=== PATIENT | male | born 1940 | race Caucasian/White ===

== ENCOUNTER → 2016-08-25 | Outpatient (CLI) | payer MEDICARE, BC ==
[~2016-08-25] MED LIST: ACETAMINOPHEN PO; ADVIL200 M3 PO; ALLEGRA PO; AMLODIPINE BESYL5 MG PO; ASPIRIN PO; ASPIRIN81 M2 PO; CENTRUM SILVER PO; CLARITIN10 M2 PO; CLARITIN10 MG PO; DAKIN'S MODIF1000 ML EXT; DICLOFENAC PO; FOLIC ACID PO; GLUCOPHAGE500 MG; GLYNASE PO; LEVAQUIN PO; LEVAQUIN750 MG PO; LISINOPRIL PO; LOPRESSOR PO; LORTAB 7.5-5001 TAB PO; MAXIPIME2 GM IV; METFORMIN HCL500 M1 PO; METFORMIN PO; METHOTREXATE2.5 MG PO; NORVASC PO; NORVASC2.5 MG PO; PANTOPRAZOLE SO40 MG PO; PERCOCET PO; PRILOSEC PO; SANTYL15 G1 TP; SIMVASTATIN20 MG PO; SORIATANE25 M1 PO; SORIATANE25 MG PO; VANCOMYCIN HCL1 GM IV; VITAMIN B122500 MCG; ZESTRIL2.5 M1 PO; ZOCOR PO
--- NOTE | ~2016-08-25 | CT15 ---
[facility] A Service of [facility] & [facility] RADIOLOGY TEXT RESULTS PATIENT: RISA GARSIA LOCATION: [facility] : 40 UNIT #: [id number] AGE: [address]: MARINA SPRINGER MD SEX: M ORDER DR: [id number] [place] [id number] O MR#: [id number] Acc #: [id number] NAME: RISA GARSIA : 1940 SEX: M STUDY DATE/TIME: 08/25/2016 10:42 UNIT: [facility] ROOM: STUDY DESCRIPTION: CT Angio Chest Attending Physician: Marina Springer M.D. Referring Physician: Marina Springer M.D. Ordering Physician: Marina Springer M.D. Primary Care Physician: Zari Jhaveri A.P.R.N. MEDICAL IMAGING REPORT This report is preliminary unless electronic signature is present. EXAM CT angiogram chest. INDICATIONS A 6-month follow up of that of an ascending aortic aneurysm. Patient was noted to have aneurysmal dilatation of the ascending thoracic aorta on prior CT from January 08, 2016. TECHNIQUE Axial CT images were obtained from thoracic inlet through the diaphragm following administration of the intravenous contrast material. Following this, 3-D reformatted images were obtained. This CT exam was performed with one or more of the following radiation dose reduction techniques: automatic exposure control, adjustment of mA and/or kV according to patient size, and iterative reconstruction. FINDINGS This patient has stable aneurysmal dilatation of the ascending thoracic aorta measuring about 4.2 cm. Proximal descending thoracic aorta is also dilated 3.3 cm. Mid descending thoracic aorta tapers to 3.1 cm in the distal descending thoracic aorta measures 2.7 cm. Aortic root is also dilated at 4.4 cm, again not significantly changed when compared to prior exam. There is no evidence of dissection. The thyroid gland and trachea appear within normal limits. Patient does have a laparoscopic gastric band which appears to be appropriately positioned. There is no pleural or pericardial effusion. There is some prominent right hilar nodes, but I do not really think that they are significantly changed when compared to the exam from January 08, 2016. Background emphysematous changes noted. No suspicious pulmonary nodules [facility] A Service of [facility] & [facility] RADIOLOGY TEXT RESULTS PATIENT: RISA GARSIA LOCATION: [facility] : 40 UNIT #: [id number] AGE: [address]: MARINA SPRINGER MD SEX: M ORDER DR: or masses are seen. 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 There are changes of prior ventral hernia repair with mesh. The liver appears unremarkable. Patient does have cholelithiasis. This patient's common hepatic artery arises directly from the aorta which is a normal anatomic variant. Review of bony windows does not demonstrate any aggressive osseous abnormalities. IMPRESSION 1. This patient has stable aneurysmal dilatation of the aortic root and thoracic aorta as described above. 2. Cholelithiasis. 3. Background emphysematous changes. There are some mildly prominent right hilar nodes which do not appear significantly changed when compared to December of 2015. Please see the body of the report for any other additional incidental findings. Dictated by... Pamela Butcher M.D. THIS IS AN ELECTRONICALLY VERIFIED REPORT Pamela Butcher M.D. at 08/28/2016 10:52 AM OMAR/katheryn TD: 08/26/2016 21:44 JOB #: [id number] MEDICAL IMAGING REPORT Page 1 of 1
[2016-08-25 09:25] LABS: POC - CREATININE 1.55 mg/dL (0.64-1.27)
== END | disposition home or self-care (01) ==
LOC: SCT 08-23 08:30
PROVIDERS: Surgery
DX: I71.2 Thoracic aortic aneurysm, without rupture (principal)
CPT/HCPCS: 71275; 82565; Q9967